=== PATIENT | female | born 1945 | race Caucasian/White ===

== ENCOUNTER → 2022-12-12 12:43 | Outpatient (CLI) | payer MEDICARE, SELFPAY ==
--- NOTE | ~2022-12-12 | MR_ITS ---
EXAMINATION: MR hip LT wo con DATE: 12/12/2022 14:20 INDICATION: Arthritis of left hip. TECHNIQUE: Magnetic resonance imaging (MRI) of the left hip was performed without intravenous contras t. COMPARISON: None FINDINGS: Bones/cartilage: There is 4 degrees levocurvature of lumbar spine. There is moderate lumbar spondylosis. The femoral h ead/neck morphologies are normal. The hips demonstrate tiny osteophytes. Small [id number] images o f left hip demonstrate partial-thickness cartilage loss. Partially visualized is edema-like marrow si gnal intensity from left femoral neck to at least proximal left femoral diaphysis. There is low intra medullary signal in proximal left femoral diaphysis spanning 3.6 cm craniocaudal in a pattern of ruslan droid matrix. There is a mass surrounding proximal left femur measuring 6.9 x 5.9 x 8.4 cm. Labrum: There is a tear of left acetabular labrum. Fluid: There is no hip joint effusion. There is mild bilateral trochanteric bursitis. Soft tissues: There is mild tendinopathy of left hamstring origin. The iliopsoas tendons are normal. There is an ol d partial tear of left gluteus minimus tendon. IMPRESSION: 1. Mass involving proximal left femur suspicious for neoplasm such as chondrosarcoma. 2. Mild osteoarthritis of the hips. Reviewed, dictated and finalized at location A. IMPRESSION: 1. Mass involving proximal left femur suspicious for neoplasm such as chondrosa rcoma. 2. Mild osteoarthritis of the hips.
--- NOTE | ~2022-12-12 | MR_ITS ---
EXAMINATION: MR lumbar spine wo con DATE: 12/12/2022 14:20 INDICATION: Lumbar radiculopathy. Left hip and leg pain. TECHNIQUE: Magnetic resonance imaging (MRI) of the lumbar spine was performed without intravenous con trast. Sequences included sagittal T2-weighted FSE, sagittal T2-weighted FS FSE, sagittal T1-weighted FSE, and axial T2-weighted FSE. COMPARISON: None FINDINGS: There is 4 degrees levocurvature of lumbar spine. There are Schmorl's nodes at multiple lev els. There are low signal lesions in L1 and L5 vertebral bodies. There is mildly decreased disc heigh t at L2-L3 and L3-L4 and moderately decreased disc height at L4-L5. The distal spinal cord signal int ensity is normal. The conus medullaris is at L1-L2. The following disc levels are specifically discus sed: L1-L2: The disc does not extend beyond the endplate margin. There is mild bilateral facet joint osteo arthritis. There is no neural foraminal stenosis. There is no central canal stenosis. L2-L3: The disc is bulging. There is severe bilateral facet joint osteoarthritis. There is mild bilat eral neural foraminal stenosis. There is mild central canal stenosis. L3-L4: The disc is bulging. There is severe bilateral facet joint osteoarthritis. There is mild right and moderate left neural foraminal stenosis. There is mild central canal stenosis. L4-L5: The disc is bulging. There is severe bilateral facet joint osteoarthritis. There is mild bilat eral neural foraminal stenosis. There is mild central canal stenosis. L5-S1: The disc is bulging. There is severe bilateral facet joint osteoarthritis. There is mild bilat eral neural foraminal stenosis. There is no central canal stenosis. IMPRESSION: 1. Bone lesions involving L1 and L5 vertebral bodies suspicious for metastatic disease. 2. Moderate lumbar spondylosis. Reviewed, dictated and finalized at location A.
== END ==
DX: R29.898 Other symptoms and signs involving the musculoskeletal system (principal); M62.81 Muscle weakness (generalized); M47.26 Other spondylosis with radiculopathy, lumbar region; M16.0 Bilateral primary osteoarthritis of hip
CPT/HCPCS: 72148; 73721

== ENCOUNTER 2023-03-30 00:15 | Inpatient (IN) | payer MEDICARE, SELFPAY ==
[2023-03-30] VITALS (14 sets, daily range): BP systolic 131–166; BP diastolic 39–83; PULSE 62–110; RESP 15–24; TEMP 36.4–36.6; O2SAT 93–96
--- NOTE | ~2023-03-30 | XR_ITS ---
EXAMINATION: [id number] DATE: 03/31/2023 12:40 INDICATION: Left pleural effusion status post thoracentesis. TECHNIQUE: A single frontal view of the chest was obtained. COMPARISON: Chest 2 views 03/30/2023, chest CT 03/30/2023 FINDINGS: There are small pleural effusions. There are nodules and masses in the lungs bilaterally. T here is mild atelectasis bilaterally. No pneumothorax. The heart size is normal. Median sternotomy wi res and mediastinal surgical clips are seen, likely from prior coronary artery bypass grafting. Breas t implants are noted. IMPRESSION: 1. Small pleural effusions with improvement on the left status post thoracentesis. 2. Nodules and masses in the lungs, consistent with metastatic disease. Reviewed, dictated and finalized at location A. AR REPAIRER IMPRESSION: 1. Small pleural effusions with improvement on the left status post thoracentes is. 2. Nodules and masses in the lungs, consistent with metastatic disease.
--- NOTE | ~2023-03-30 | US_ITS ---
EXAMINATION: US thoracentesis DATE: 03/31/2023 12:48 INDICATION: pleural effusion TECHNIQUE: The procedure and its risks, benefits, and alternatives were discussed with the patient. P otential risks discussed included bleeding, infection, and pneumothorax. The patient understood the r isks and agreed to proceed. The skin was prepped and draped in sterile fashion. 1% lidocaine was used for local anesthesia. Under ultrasound guidance, a 5 Fr catheter with trochar was advanced into the left pleural effusion. Fluid was aspirated. The catheter was removed, and a dressing was applied. The re were no immediate complications. FINDINGS: Ultrasound images demonstrate a left pleural effusion and the catheter within the fluid. IMPRESSION: 1. Successful ultrasound-guided thoracentesis yielding 1000 mL of brown-red fluid. Reviewed, dictated and finalized at location A. ANALYST IMPRESSION: 1. Successful ultrasound-guided thoracentesis yielding 1000 mL of brown-red fl uid.
--- NOTE | ~2023-03-30 | XR_ITS ---
Clinical Indication: Shortness of breath PA and lateral views of the chest: Comparison: None Findings: Moderate left pleural effusion and minimal right pleural effusion are present. There is bib asilar pulmonary edema/atelectatic change. Cardiomediastinal silhouette is within normal limits, stat us post probable CABG. Bones and soft tissues are unremarkable. Impression: Moderate left pleural effusion and minimal right pleural effusion. Bibasilar pulmonary edema/atelectasis. Reviewed, dictated and finalized at location M. MECHANIC Impression: Moderate left pleural effusion and minimal right pleural effusion. Bibasilar pulmonary edema/atelectasis.
--- NOTE | ~2023-03-30 | CT_ITS ---
CT head without contrast Indication: Metastatic disease Technique: Serial scans were obtained through the brain without the administration of contrast. Dose reduction technique was used on this scan by utilizing automated exposure control and iterative recon struction technique. The dose-length product (DLP) was 605.33 mGy-cm. Findings: There is no evidence of intracranial hemorrhage, mass lesion, or acute infarct. The ventri cles and subarachnoid spaces are dilated, consistent with mild atrophy. Low attenuation regions are seen within the periventricular white matter bilaterally, likely representing changes from chronic mi crovascular ischemic disease. There is no evidence of edema, mass effect or midline shift. The visu alized paranasal sinuses and mastoid air cells are clear. Impression: No intracranial hemorrhage, mass, or acute infarct. Pre and postcontrast MR would be more sensitive f or small metastatic lesions. Atrophy and chronic white matter changes, as above. Reviewed, dictated and finalized at [facility]. M MECHANISM ADJUSTER Impression: No intracranial hemorrhage, mass, or acute infarct. Pre and postcontrast MR wou ld be more sensitive for small metastatic lesions. Atrophy and chronic white matter changes, as above.
--- NOTE | ~2023-03-30 | CT_ITS ---
Clinical Indication: Dyspnea CT Scan of the Chest with Contrast: Technique: Contiguous sections were acquired throughout the chest after intravenous administration of 100 cc of Omnipaque 350. Dose reduction technique was used on this scan by utilizing automated expos ure control and iterative reconstruction technique. The dose-length product (DLP) was 246.95 mGy-cm. Findings: There is no evidence of any significant mediastinal, hilar or axillary lymphadenopathy. There is no f illing defect in the pulmonary arterial tree to suggest pulmonary embolus. There is no evidence of ao rtic dissection or aneurysm. There is a metastatic implant along the anterior wall of the pulmonary o utflow tract extending into the lumen partially measuring 2.5 cm in diameter (axial image 106 for exa mple). The intraluminal extension portion measures approximately 1 cm in diameter. No pericardial eff usion. There is a probable metastatic inferior pericardial lymph node on the right side measuring 2 c m in diameter (axial image 172). There are moderate bilateral pleural effusions, left larger than right. There is fluid in the right f issures. There is extensive partial left lower lobe atelectasis, and mild partial right lower lobe at electasis. There are multiple pulmonary nodules bilaterally, largest in the right lung probably measu ring up to approximately 2.8 cm, consistent with pulmonary metastatic disease. There are subtle areas of lobulated hyperdensity along the pleural lining of the lungs, especially at the lung bases, kyle tible with pleural-based metastatic disease. Images through the upper abdomen reveal no abnormalities. Impression: No evidence of pulmonary embolus, aortic dissection, or aortic aneurysm. Extensive pulmonary parenchymal and pleural-based metastatic disease, as detailed above. Cardiac/pericardial metastatic lesion anteriorly extending into the pulmonary artery outflow tract, a s detailed above. Moderate bilateral pleural effusions, left larger than right, with partial bilateral lower lobe atele ctasis. Metastatic inferior pericardial lymph node, as detailed above. Reviewed, dictated and finalized at location M. HER ETCHER Impression: No evidence of pulmonary embolus, aortic dissection, or aortic aneurysm. Extensive pulmonary parenchymal and pleural-based metastatic disease, as detail ed above. Cardiac/pericardial metastatic lesion anteriorly extending into the pulmonary a rtery outflow tract, as detailed above. Moderate bilateral pleural effusions, left larger than right, with partial bila teral lower lobe atelectasis. Metastatic inferior pericardial lymph node, as detailed above.
--- NOTE | 2023-03-30 00:25 | ECG_ITS ---
Measurements Intervals [place] Rate: 94 P: 0 ND: 132 QRS: 25 QRSD: 81 T: 27 QT: 367 QTc: 461 Interpretive Statements SINUS RHYTHM BORDERLINE ST-T WAVE ABNORMALITY- DIFFUSE LEADS BASELINE WANDER- I, II, AVF, V4-V6 BORDERLINE ECG NO PREVIOUS ECG AVAILABLE FOR COMPARISON Electronically Signed On 03-30-2023 6:59:51 DISTILLING DEPARTMENT SUPERVISOR by Ye Dixon D.O.
--- NOTE | 2023-03-30 00:46 | PC.NURSE ---
While patient was getting her labs drawn and EKG done in triage patient was making comments that didn't make sense. Patient asked tech if she was sisters with her mom .
[2023-03-30 01:03] LABS: Alanine Aminotransferase 20 U/L (6-35); Albumin Level 2.9 g/dL (3.5-5.1); Alkaline Phosphatase 88 U/L (38-126); Anion Gap 7 mmol/L (8-16); Aspartate Amino Transferase 28 U/L (14-36); Bilirubin,Total 0.5 mg/dL (0.2-1.3); Blood Urea Nitrogen 11 mg/dL (7-17); Calcium 7.9 mg/dL (8.4-10.2); Carbon Dioxide 28 mmol/L (22-30); Chloride 87 mmol/L (98-107); Estimated CRCL calculation 78 ml/min; Estimated Glomerular Filt Rate > 60; Glucose 137 mg/dL (65-110); Potassium 3.6 mmol/L (3.4-5.0); Sodium 122 mmol/L (137-145)
[2023-03-30 01:28] LABS: Influenza A QL RT-PCR Negative (Negative); Influenza B QL RT-PCR Negative (Negative); RSV RNA, RT-PCR Negative (Negative); SARS-CoV-2 RNA PCR Negative (Negative)
[2023-03-30 01:33] LABS: Basophils Percent Auto 0.3 % (0.2-1.2); Eosinophils Percent Auto 0.1 % (0-4.4); Hematocrit 26.9 % (37.0-47.0); Hemoglobin 8.2 g/dL (12.0-15.0); Immature Granulocyte Absolute 0.04 K/mm3 (0.00-0.031); Immature Granulocyte Percent A 0.5 % (0-0.5); Lymphocytes Absolute Auto 0.67 K/mm3 (0.9-3.2); Lymphocytes Percent Auto 9.1 % (18.3-44.2); Mean Corpuscular HGB Conc 30.5 g/dl (32-36); Mean Corpuscular Hemoglobin 25.7 pg (26-34); Mean Corpuscular Volume 84.3 fl (80-100); Mean Platelet Volume 8.9 fl (7.4-10.4); Monocytes Absolute Auto 0.7 K/mm3 (0.1-0.6); Monocytes Percent Auto 9.7 % (2.6-8.5); Neutrophils Absolute Auto 5.9 K/mm3 (1.3-6.7); Neutrophils Percent Auto 80.3 % (45.5-73.1); Platelet Count Result 398 k/mm3 (150-375); Red Blood Count 3.19 M/mm3 (4.2-5.4); Red Cell Distribution Width 14.6 % (11.5-14.5); White Blood Count 7.3 K/mm3 (4.5-10.0)
[2023-03-30 02:54] LABS: Partial Thromboplastin Time 32.7 SECONDS (22.3-36.8)
[2023-03-30 02:56] LABS: NT Pro B Type Natriuretic Pept 1680 pg/mL (19.9-100); Procalcitonin 0.1 ng/mL; Troponin I 0.052 ng/mL (0.000-0.034)
[2023-03-30] MEDS: ASPIRIN 81 MG CHEWABLE TABLET 324 MG PO (03:27)
--- NOTE | 2023-03-30 04:38 | PC.NURSE ---
AFTER PT UTILIZED THE BEDSIDE COMMODE, PT REQUESTED A NEW BANDAGE BE PLACED ON WOUND. THIS RN REPLACED THE WOUND COVERING WITH NON- ADHERENT TEFLA AND PAPER TAPE ALONG THE EDGES REQUESTED BY PT VISITOR WHO NORMALLY CHANGES PT WOUND DRESSING.
--- NOTE | 2023-03-30 04:44 | ED.GENADULT ---
HPI - General Adult General Chief complaint: Shortness of Breath/Dyspnea Stated complaint: I'm having trouble breathing Time Seen by Provider: 03/30/23 01:27 History of Present Illness HPI narrative: Patient is a 78-year-old female who presents emerged from with chief complaint of shortness of breath. Patient reports over last several days she has been having worsening shortness of breath reports that this she is knows that she is not able to get a good deep breath and reports that it is worse with laying flat. 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 Nursing and ancillary documentation was reviewed. Exam Narrative: GENERAL: Well-appearing, well-nourished, and in no acute distress. HEAD: Normocephalic, atraumatic. EYES: PERRLA and EOMI. ENT: Nares clear, no rhinorrhea or epistaxis. Mucous membranes moist. NECK: Supple. CHEST: Clear to auscultation. No respiratory distress. HEART: Regular rate and rhythm. No murmur heard. Normal peripheral pulses. ABDOMEN: Soft, nontender, nondistended, normal active bowel sounds. EXTREMITIES: Normal range of motion. No edema. SKIN: Warm, dry, no rash. NEURO: No focal deficits. Alert and oriented x3. PSYCH: Normal mood and affect. Course Vital Signs Vital signs: Vital Signs Temperature 36.6 C 03/30/23 00:18 Pulse Rate 104 H 03/30/23 00:18 Respiratory Rate 24 H 03/30/23 00:18 Blood Pressure 131/63 03/30/23 00:18 Pulse Oximetry 96 03/30/23 00:18 Oxygen Delivery Room Air 03/30/23 00:18 Temperature 36.6 C 03/30/23 00:18 Pulse Rate 92 03/30/23 02:46 Respiratory Rate 15 03/30/23 02:46 Blood Pressure 131/63 03/30/23 00:18 Pulse Oximetry 94 03/30/23 01:25 Oxygen Delivery Room Air 03/30/23 01:25 Medical Decision Making MDM Narrative Medical decision making narrative: Differential diagnosis includes pulmonary embolism, multiple metastatic lesions, pneumonia CT scan of the chest showed evidence of multiple metastatic lesions pleural effusion, compressive atelectasis Case was discussed with Dr. Cedeno of the apology service at [place] the patient was accepted to [place] Vital Signs Vital Signs: Vital Signs Temperature 36.6 C 03/30/23 00:18 Pulse Rate 104 H 03/30/23 00:18 Respiratory Rate 24 H 03/30/23 00:18 Blood Pressure 131/63 03/30/23 00:18 Pulse Oximetry 96 03/30/23 00:18 Oxygen Delivery Room Air 03/30/23 00:18 Temperature 36.6 C 03/30/23 00:18 Pulse Rate 92 03/30/23 02:46 Respiratory Rate 15 03/30/23 02:46 Blood Pressure 131/63 03/30/23 00:18 Pulse Oximetry 94 03/30/23 01:25 Oxygen Delivery Room Air 03/30/23 01:25 Lab Data 03/30/23 01:23 03/30/23 00:44 Labs: Lab Results 03/30/23 03/30/23 03/30/23 Range/Units 00:44 01:23 05:30 WBC 7.3 (4.5-10.0) K/mm3 RBC 3.19 L (4.2-5.4) M/mm3 Hgb 8.2 L (12.0-15.0) g/dL Hct 26.9 L (37.0-47.0) % MCV 84.3 (80-100) fl MCH 25.7 L (26-34) pg MCHC 30.5 L (32-36) g/dl RDW 14.6 H (11.5-14.5) % Plt Count 398 H (150-375) k/mm3 MPV 8.9 (7.4-10.4) fl Immature Gran % (Auto) 0.5 (0-0.5) % Neut % (Auto) 80.3 H (45.5-73.1) % Lymph % (Auto) 9.1 L (18.3-44.2) % [place] % (Auto) 9.7 H (2.6-8.5) % Eos % (Auto) 0.1 (0-4.4) % Baso % (Auto) 0.3 (0.2-1.2) % Lymph # (Auto) 0.67 L (0.9-3.2) K/mm3 [place] # (Auto) 0.7 H (0.1-0.6) K/mm3 Eos # (Auto) 0.0 (0-0.3) K/mm3 Baso # (Auto) 0.0 (0.0-0.1) K/mm3 Abs Immat Gran (auto)
--- NOTE | 2023-03-30 05:56 | PC.NURSE ---
THIS RN SPOKE WITH SHIRA JOSHI AT [facility] TOO GIVE A TRIAGE ASSESSMENT ON PT. SHIRA JOSHI STATED THEY WERE FULL AT THE MOMENT BUT THE PT WAS ACCEPTED AND PENDING A BED ASSIGNMENT.
[2023-03-30 06:00] LABS: Troponin I 0.043 ng/mL (0.000-0.034)
[2023-03-30 06:04] LABS: Add Urine Microscopic? YES; Appearance Urine Clear (Clear); Bacteria Urine Rare /hpf; Bilirubin Urine Negative (Negative); Blood Urine Negative (Negative); Color Urine Yellow (Yellow); Glucose Urine UA Negative (Negative); Ketones Urine 3+ mg/dL (Negative); Leukocyte Esterase Ur Negative LEU/UL (Negative); Need Manual Microscopic Reviewed; Nitrate Urine Negative (Negative); Non Pathogenic Casts 0-2; Protein Urine 1+ mg/dL (Negative); Squamous Epithelial Cell Urine Few /hpf (Few); Urobilinogen Urine 0.2 mg/dL (<2.0); WBC Urine 0-5 /hpf
[2023-03-30] MEDS: lisinopriL 20 MG TABLET 40 MG PO (09:00)
[2023-03-30] MEDS: ISOSORBIDE MONONITRATE 30 MG TAB.ER.24H PO (09:01)
[2023-03-30] MEDS: LEVOTHYROXINE SODIUM 100 MCG TABLET PO (09:01)
[2023-03-30] MEDS: oxyCODONE HCL (*CRX) 5 MG TAB IR PO ×2 (09:38→17:03)
[2023-03-30] MEDS: PANTOPRAZOLE SOD SESQUIHYDRATE 20 MG TAB PO (12:32)
--- NOTE | 2023-03-30 13:45 | PC.NURSE ---
[facility] stated that pt is still on waitlist for an oncology bed, and will call when there is a bed available
--- NOTE | 2023-03-30 16:33 | PC.NURSE ---
Pt visitors came to nurse station in regards to pt. This RN entered pt room and checked on pt. Pt visitors inquired about pain medications for pt and stated if you won't give her her oxycodone or gabapentin we will bring it to her from home . This RN educated pt visitors and informed them that they could not bring in outside pain medications and administer them. This RN then informed pt and pt visitors that she would inform the EDP on staff. EDP aware of pt complaints of pain and requests for her pain medications.
[2023-03-30] MEDS: GABAPENTIN 400 MG CAPSULE PO (17:03)
--- NOTE | 2023-03-30 19:16 | PC.NURSE ---
Report given to Gladys SILVA, all questions answered
--- NOTE | 2023-03-30 19:52 | PC.NURSE ---
Spoke with [facility] transfer center for status check on bed placement. No beds currently available and pt has several others ahead of her on waitlist.
--- NOTE | 2023-03-30 23:29 | ADMGEN ---
This patient, Janet Benitez, was admitted to Medical Room 242-. Patient/family oriented to hospital policies and general routines including ID bracelet, bed and alarms, visiting hours, pain management, procedures, bathroom and other care routines, personal items, smoking policy, room service/diet, and visiting hours. Information on how to activate the Rapid Response Team has been discussed. Patient/Family are encouraged to report perceived risks to care and to ask questions if they do not understand what they are told or what they should do.
[2023-03-31] VITALS (10 sets, daily range): BP systolic 100–148; BP diastolic 47–62; PULSE 89–100; RESP 14–20; TEMP 36.5–36.8; O2SAT 94–99
[2023-03-31] MEDS: ONDANSETRON INJ 4 MG/2 ML VIAL IV PUSH ×2 (00:12→13:14)
[2023-03-31] MEDS: MORPHINE SULFATE (*CRX) 2 MG/ML INJ IV PUSH ×3 (00:12→13:13)
[2023-03-31] MEDS: LEVOTHYROXINE SODIUM 100 MCG TABLET PO (08:40)
[2023-03-31] MEDS: dilTIAZem HCL CD 120 MG CAP.24HR PO (08:40)
[2023-03-31] MEDS: ISOSORBIDE MONONITRATE 30 MG TAB.ER.24H PO (08:40)
[2023-03-31] MEDS: GABAPENTIN 400 MG CAPSULE PO ×3 (08:40→21:12)
[2023-03-31] MEDS: PANTOPRAZOLE SOD SESQUIHYDRATE 20 MG TAB PO (08:40)
[2023-03-31] MEDS: FUROSEMIDE 40 MG TABLET PO (08:41)
[2023-03-31] MEDS: lisinopriL 20 MG TABLET 40 MG BY MOUTH (08:41)
[2023-03-31] MEDS: oxyCODONE HCL (*CRX) 5 MG TAB IR PO ×3 (08:46→21:12)
--- NOTE | 2023-03-31 12:15 | PM.IMHP ---
H&P: HPI History of Present Illness Date/Time: 03/31/23 1215 Chief Complaint: Shortness of breath Narrative: Patient is a 78 year old female with a past medical history of HTN, Metastatic cancer, Hypothyroidism who presented to the ED with complaints of increase shortness of breath, that started on Thursday night. She stated that she was having increased wheezes, inability to lay flat, and just overall increased work of breathing. She also stated that she has a cough, however, has not been productive. She has been having no chest pain, nausea, vomiting, diarrhea, constipation, weakness or fatigue. She did state that she has been having some light headedness and dizziness, however, seems to be chronic at this time. Patient does have a wound on her left leg hip bone area. She does need wound care 3 times a day. She currently is feeling a lot better and she is transferring from the chair to the bed. Currently she denies any current pain including chest pain, shortness a breath, nausea, vomiting, diarrhea constipation. I did speak to her sister along with her partner and her best friend who were all the room and she did give me permission to talk to them. Patient has been placed back on the list at [facility]. CTA was performed and showed possible new cancer. Spoke with Dr. Vásquez' nurse. Labs appear to be stable at this time. Sodium is 122 however most likely related to fluid overload. Troponins were mildly elevated BNP was mildly elevated at 16 80. Will repeat labs at this time. Patient has been accepted to [facility] with Dr. Vásquez being the accepting Physicians. Patient is being admitted to the hospitalist service under observation, and will most likely require less than 2 midnights for treatment, recovery, care. Review of Systems Review of Systems: 14 systems reviewed and are negative unless otherwise listed in the HPI. [facility] Past Medical History Medical History (Updated 03/31/23 @ 07:12 by LUIS M Ku) Acute dyspnea CAD (coronary artery disease) Cancer related pain Debilitated Gait abnormality Hyperlipidemia Hypertension Hypothyroidism Lesion of left femur Mass of chest wall, left Paroxysmal A-fib Severe malnutrition Steroid-induced hyperglycemia Surgical History Surgical History (Updated 03/31/23 @ 07:01 by LUIS M Ku) S/P CABG x 3 Family History Family History (Updated 03/30/23 @ 23:55 by Nneka Delgadillo RN) Father Acute myocardial infarction Colon cancer Congestive heart failure Sibling Cerebrovascular accident Sibling Hypertension Graves' disease Daughter Hypertension Sibling Mesothelioma Mother Lung cancer Graves' disease Social History Social History Smoking status: Never smoker Alcohol intake: never Substance use: never Do You Feel Safe in your Home?: Yes Lack of Transportation: No Lack of Food: Never True Current Housing: I Have Housing Concerned About Future Housing: No Difficulty Paying Gas/Electric Bills: No Difficulty Paying for Meds: No Currently Unemployed: No Education: Master's Degree or Higher Difficulty w/ Childcare or Family Care: No Spiritual care concerns: No Meds Home Medications and Allergies Home Medications Medication Instructions Recorded Confirmed Type apixaban 2.5 mg tablet (Eliquis) 2.5 mg PO Q12HR 30 days #60 tabs 02/14/23 03/30/23 Rx atorvastatin 20 mg tablet 20 mg PO HS 30 days #30 tabs 02/14/23 03/30/23 Rx diltiazem HCl 120 mg capsule,24 120 mg PO QAM 30 days #30 caps 02/14/23 03/30/23 Rx hr,extended release furosemide 40 mg tablet 40 mg PO DAILY 5 days #5 tabs 02/14/23 03/30/23 Rx gabapentin 400 mg capsule 400 mg PO Q8HR 30 days #90 caps 02/14/23 03/30/23 Rx isosorbide mononitrate 30 mg 30 mg PO QAM 30 days #30 tabs 02/14/23 03/30/23 Rx tablet,extended release 24 hr levothyroxine 100 mcg tablet 100 mcg PO DAILY@0630 30 days
[2023-03-31] MEDS: ATORVASTATIN 20 MG TABLET PO (21:08)
[2023-04-01] VITALS (10 sets, daily range): BP systolic 96–110; BP diastolic 37–58; PULSE 88–107; RESP 16–22; TEMP 36.6–36.7; O2SAT 91–95; BMI 24.1
[2023-04-01] MEDS: LEVOTHYROXINE SODIUM 100 MCG TABLET PO (05:39)
[2023-04-01] MEDS: oxyCODONE HCL (*CRX) 5 MG TAB IR PO (05:39)
[2023-04-01] MEDS: GABAPENTIN 400 MG CAPSULE PO (05:40)
--- NOTE | 2023-04-01 05:47 | PC.NURSE ---
UPON GIVING PT MORNING MED AND PAIN MEDICATION PT WENT IN AND OUT OF ORIENTATION. AFTER TAKING THE PILLS PT ACCUSED ME OF NOT GIVING HER PAIN MEDS. I THEN NAMED ALL THE MEDS I GAVE HER AGAIN WITH DESCRIPTION OF SIZE AND COLOR. PT THEN SAID SHE REMEMBERED.
[2023-04-01 05:57] LABS: Basophils Percent Auto 0.2 % (0.2-1.2); Eosinophils Percent Auto 0.3 % (0-4.4); Hematocrit 25.2 % (37.0-47.0); Hemoglobin 7.7 g/dL (12.0-15.0); Immature Granulocyte Absolute 0.06 K/mm3 (0.00-0.031); Immature Granulocyte Percent A 0.6 % (0-0.5); Lymphocytes Absolute Auto 0.75 K/mm3 (0.9-3.2); Lymphocytes Percent Auto 7.8 % (18.3-44.2); Mean Corpuscular HGB Conc 30.6 g/dl (32-36); Mean Corpuscular Hemoglobin 26.2 pg (26-34); Mean Corpuscular Volume 85.7 fl (80-100); Mean Platelet Volume 8.9 fl (7.4-10.4); Monocytes Absolute Auto 0.7 K/mm3 (0.1-0.6); Monocytes Percent Auto 6.7 % (2.6-8.5); Neutrophils Absolute Auto 8.1 K/mm3 (1.3-6.7); Neutrophils Percent Auto 84.4 % (45.5-73.1); Platelet Count Result 399 k/mm3 (150-375); Red Blood Count 2.94 M/mm3 (4.2-5.4); Red Cell Distribution Width 15.2 % (11.5-14.5); White Blood Count 9.6 K/mm3 (4.5-10.0)
[2023-04-01 06:04] LABS: Alanine Aminotransferase 17 U/L (6-35); Albumin Level 2.5 g/dL (3.5-5.1); Alkaline Phosphatase 78 U/L (38-126); Anion Gap 5 mmol/L (8-16); Aspartate Amino Transferase 26 U/L (14-36); Bilirubin,Total 0.4 mg/dL (0.2-1.3); Blood Urea Nitrogen 19 mg/dL (7-17); Calcium 7.7 mg/dL (8.4-10.2); Carbon Dioxide 29 mmol/L (22-30); Chloride 90 mmol/L (98-107); Estimated CRCL calculation 42 ml/min; Estimated Glomerular Filt Rate > 60; Glucose 185 mg/dL (65-110); Magnesium 2.1 mg/dL (1.6-2.3); Sodium 124 mmol/L (137-145)
[2023-04-01] MEDS: ISOSORBIDE MONONITRATE 30 MG TAB.ER.24H PO (08:37)
[2023-04-01] MEDS: FUROSEMIDE 40 MG TABLET PO (08:37)
[2023-04-01] MEDS: PANTOPRAZOLE SOD SESQUIHYDRATE 20 MG TAB PO (08:37)
[2023-04-01] MEDS: MORPHINE SULFATE (*CRX) 60 MG TABCR PO (08:37)
--- NOTE | 2023-04-01 10:37 | PC.NURSE ---
Am bp meds held bp 100/47, Dr Edmond notified
--- NOTE | 2023-04-01 10:38 | PM.IMPN ---
Progress Note: A&P Assessment and Plan (1) Hyponatremia: Code(s): E87.1 - Hypo-osmolality and hyponatremia Status: Acute Assessment and Plan: Her sodium 124. Limited fluid intake. We will replace sodium tablet. 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 Possible metastasis to and/or been seen by oncologist at [place] plan for transfer. Continue oxycodone and gabapentin for pain control (3) Hypothyroidism: Qualifiers: Hypothyroidism type: acquired Qualified Code(s): E03.9 - Hypothyroidism, unspecified Code(s): E03.9 - Hypothyroidism, unspecified Status: Acute Assessment and Plan: Continue levothyroxine (4) Paroxysmal A-fib: Code(s): I48.0 - Paroxysmal atrial fibrillation Status: Acute Assessment and Plan: New onset atrial fibrillation. Continue Eliquis. Monitor H&H. Continue isosorbide mononitrate, lisinopril, furosemide (5) Anemia: Code(s): D64.9 - Anemia, unspecified Status: Acute Assessment and Plan: ANEMIA Stool for occult blood negative Anemia of chronic disease and malnutrition Iron supplement if needed H&H 7.7/25, MCV 85.7 Patient may need dietitian consult for severe malnutrition Plan Spoke to patient at length prognosis poor. Continue Eliquis and monitor H& H. Transfer to [place] when bed available Time Spent With Patient Time: 35 minutes Subjective Date/time seen: 04/01/23 10:38 Interval history: Patient admitted with anemia pleural effusion history of metastatic lung disease, hypotension new onset atrial fibrillation on hypernatremia Review of Systems Review of Systems: No fever chills no chest pain or shortness for breath appears comfortable Exam Narrative: GENERAL: non-toxic, in no acute distress. HEAD: Normocephalic, atraumatic. NECK: Supple. No adenopathy, no masses. RESPIRATORY: Airway patent, respirations nonlabored. Clear to auscultation bilaterally, no rales, rhonchi, wheezing. CARDIOVASCULAR: Regular rate and rhythm without murmurs, rubs, or gallops. Peripheral pulses 2+ and equal bilaterally. ABDOMINAL: Soft, nontender, nondistended, no hepatosplenomegaly. Normoactive BS. MUSCULOSKELETAL: no Epigastric and no hypochondrial tenderness SKIN: Warm, dry, normal color. No rashes. NEURO: A&O X3. Moves all extremities PSYCHIATRIC: Appropriate mood and affect. Normal interaction. Objective Data Vital Signs Vital Signs: Vital Signs - 24 hr 03/31/23 12:15 03/31/23 12:33 03/31/23 14:00 Temperature 36.6 C Pulse Rate 94 93 89 Respiratory Rate 19 Blood Pressure 115/60 101/50 L 118/58 L Pulse Oximetry 97 99 95 Oxygen Delivery Oxygen Flow Rate 03/31/23 15:30 03/31/23 20:00 03/31/23 21:26 Temperature 36.8 C Pulse Rate 93 94 Respiratory Rate 18 Blood Pressure 100/50 L 101/47 L Pulse Oximetry 95 95 94 Oxygen Delivery Nasal Cannula Oxygen Flow Rate 2 04/01/23 05:37 04/01/23 06:00 04/01/23 08:35 Temperature 36.7 C 36.6 C Pulse Rate 88 96 Respiratory Rate 16 19 Blood Pressure 108/44 L 98/41 L 101/44 L Pulse Oximetry 95 94 Oxygen Delivery Oxygen Flow Rate 04/01/23 08:00 Temperature Pulse Rate Respiratory Rate Blood Pressure Pulse Oximetry 94 Oxygen Delivery Nasal Cannula Oxygen Flow Rate 2 Intake/Output Intake/Output: Intake & Output 03/29/23 03/30/23 03/31/23 04/01/23 23:59 23:59 23:59 23:59 Intake Total 690 240 Output Total 1000 125 Balance -310 115 Meds/Results Medications: Active Medications Generic Name Dose Route Start Last Admin Trade Name Freq PRN Reason Stop Dose Admin Acetam
[2023-04-01] MEDS: SODIUM CHLORIDE 5% OP SOLN 15 ML BTL 1 DROP EACH EYE ×2 (15:16→21:00)
[2023-04-01] MEDS: DEXTROSE 5%/0.9% SOD CHL 1,000 ML 75 ML IV CONT (15:18)
--- NOTE | 2023-04-01 15:42 | PC.NURSE ---
1500 Dr Nuno notified of patient more lethargic this afternoon. Bp 96/37, patient wakes up to voice then goes back to sleep. New orders received.
--- NOTE | 2023-04-01 17:00 | PC.NURSE ---
DR BOWER UPDATED ON BP NOW 110/40 AND SAT 96% ON 2LITERS. PATIENT STILL LETHARGIC AND LUNG SOUNDS ARE STARTING TO SOUND CONGESTED. PATIENT WILL COUGH AND CLEAR AIRWAY WHEN ASKED.
[2023-04-02] VITALS (7 sets, daily range): BP systolic 113–120; BP diastolic 28–48; PULSE 87–94; RESP 12–18; TEMP 36.3–36.8; O2SAT 91–98
[2023-04-02] MEDS: DEXTROSE 5%/0.9% SOD CHL 1,000 ML 75 ML IV CONT ×2 (04:21→16:44)
--- NOTE | 2023-04-02 07:56 | PM.IMPN ---
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 Blood pressure is up to 115/60 after a bolus of saline yesterday Sodium up to 126 and creatinine 1.2 Patient willing for transfer the [facility]. Continue oxycodone and gabapentin for pain control. Atrial fibrillation continue Eliquis, isosorbide dinitrate, lisinopril, Lasix Anemia of chronic disease and malnutrition. Iron supplements if needed. Spoke to patient's family at the moment encouraged oral intake. Prognosis is poor in general due to metastatic disease Hold BP meds. Patient is DNR. No anticoagulation due to possible GI bleed and low hemoglobin GI prophylaxis. All records reviewed Discussed plan of care patient's family and with with the nursing staff and with the patient in detail. Answered all questions and concerns from the patient. All labs have been reviewed. Code status updated dictation may have been done utilizing a voice recognition system. Attempts have been made to correct errors. However, there may be uncorrected grammatical, spelling, and recognition errors present. Time Spent With Patient Time: 35 minutes Subjective Date/time seen: 04/02/23 07:56 Interval history: Patient admitted with anemia pleural effusion history of metastatic lung disease, hypotension new onset atrial fibrillation on hypornatremia much more alert and awake Review of Systems Review of Systems: All systems reviewed & are unremarkable except as noted in HPI and below Exam Narrative: GENERAL: non-toxic, in no acute distress. HEAD: Normocephalic, atraumatic. NECK: Supple. No adenopathy, no masses. RESPIRATORY: Airway patent, respirations nonlabored. CARDIOVASCULAR: Regular rate and rhythm without murmurs, ABDOMINAL: Soft, nontender, nondistended, no hepatosplenomegaly. Normoactive BS. SKIN: Warm, dry, normal color. No rashes. NEURO: A&O X3. Moves all extremities PSYCHIATRIC: Appropriate mood and affect. Normal interaction. Objective Data Vital Signs Vital Signs: Vital Signs - 24 hr 04/01/23 08:35 04/01/23 08:00 04/01/23 14:54 Temperature Pulse Rate 96 Respiratory Rate 22 H Blood Pressure 101/44 L 96/37 L Pulse Oximetry 94 95 Oxygen Delivery Nasal Cannula Oxygen Flow Rate 2 04/01/23 16:41 04/01/23 09:17 04/01/23 20:58 Temperature Pulse Rate 107 H Respiratory Rate 20 Blood Pressure 110/40 L 110/58 L Pulse Oximetry 94 91 Oxygen Delivery Nasal Cannula Oxygen Flow Rate 2 04/01/23 21:02 04/01/23 23:47 04/02/23 04:21 Temperature 36.7 C 36.3 C L Pulse Rate 107 H 101 H 88 Respiratory Rate 20 19 18 Blood Pressure 107/43 L 114/28 L Pulse Oximetry 91 93 96 Oxygen Delivery Nasal Cannula Oxygen Flow Rate 3 04/02/23 06:00 Temperature 36.4 C Pulse Rate 94 Respiratory Rate 16 Blood Pressure 115/48 L Pulse Oximetry 94 Oxygen Delivery Oxygen Flow Rate Intake/Output Intake/Output: Intake & Output 03/30/23 03/31/23 04/01/23 04/02/23 23:59 23:59
[2023-04-02 08:44] LABS: Hematocrit 23.7 % (37.0-47.0); Mean Corpuscular HGB Conc 29.5 g/dl (32-36); Mean Corpuscular Volume 88.1 fl (80-100); Mean Platelet Volume 8.7 fl (7.4-10.4); Platelet Count Result 332 k/mm3 (150-375); Red Blood Count 2.69 M/mm3 (4.2-5.4); Red Cell Distribution Width 15.4 % (11.5-14.5); White Blood Count 9.6 K/mm3 (4.5-10.0)
[2023-04-02 09:03] LABS: Alanine Aminotransferase 15 U/L (6-35); Albumin Level 2.5 g/dL (3.5-5.1); Alkaline Phosphatase 79 U/L (38-126); Anion Gap 6 mmol/L (8-16); Aspartate Amino Transferase 23 U/L (14-36); Bilirubin,Total 0.3 mg/dL (0.2-1.3); Blood Urea Nitrogen 30 mg/dL (7-17); Calcium 7.7 mg/dL (8.4-10.2); Carbon Dioxide 29 mmol/L (22-30); Chloride 91 mmol/L (98-107); Estimated CRCL calculation 29 ml/min; Estimated Glomerular Filt Rate 43; Glucose 152 mg/dL (65-110); Potassium 3.9 mmol/L (3.4-5.0); Sodium 126 mmol/L (137-145)
[2023-04-02] MEDS: PANTOPRAZOLE SOD SESQUIHYDRATE 20 MG TAB PO (09:36)
[2023-04-02] MEDS: SODIUM CHLORIDE 5% OP SOLN 15 ML BTL 1 DROP EACH EYE ×2 (09:37→21:13)
[2023-04-02] MEDS: GABAPENTIN 400 MG CAPSULE PO ×2 (13:28→21:13)
[2023-04-02 14:10] LABS: Hemoglobin 7.6 g/dL (12.0-15.0)
[2023-04-02] MEDS: oxyCODONE HCL (*CRX) 5 MG TAB IR PO (16:45)
[2023-04-02] MEDS: ATORVASTATIN 20 MG TABLET PO (21:13)
[2023-04-03] MEDS: oxyCODONE HCL (*CRX) 5 MG TAB IR PO ×3 (04:51→19:58)
[2023-04-03] MEDS: DEXTROSE 5%/0.9% SOD CHL 1,000 ML 75 ML IV CONT (05:58)
[2023-04-03] MEDS: GABAPENTIN 400 MG CAPSULE PO ×3 (05:58→19:59)
[2023-04-03] MEDS: LEVOTHYROXINE SODIUM 100 MCG TABLET PO (05:58)
[2023-04-03 06:51] VITALS: BP 135/50; PULSE 84; RESP 14; TEMP 36.4; O2SAT 96
[2023-04-03 08:24] LABS: Hematocrit 25.1 % (37.0-47.0); Hemoglobin 7.3 g/dL (12.0-15.0); Mean Corpuscular HGB Conc 29.1 g/dl (32-36); Mean Corpuscular Hemoglobin 25.6 pg (26-34); Mean Corpuscular Volume 88.1 fl (80-100); Mean Platelet Volume 8.4 fl (7.4-10.4); Platelet Count Result 329 k/mm3 (150-375); Red Blood Count 2.85 M/mm3 (4.2-5.4); Red Cell Distribution Width 15.1 % (11.5-14.5); White Blood Count 7.4 K/mm3 (4.5-10.0)
[2023-04-03 08:30] VITALS: O2SAT 96
[2023-04-03 08:35] LABS: Alanine Aminotransferase 18 U/L (6-35); Albumin Level 2.3 g/dL (3.5-5.1); Alkaline Phosphatase 95 U/L (38-126); Anion Gap 3 mmol/L (8-16); Aspartate Amino Transferase 28 U/L (14-36); Bilirubin,Total 0.2 mg/dL (0.2-1.3); Blood Urea Nitrogen 23 mg/dL (7-17); Calcium 7.6 mg/dL (8.4-10.2); Carbon Dioxide 29 mmol/L (22-30); Chloride 98 mmol/L (98-107); Estimated CRCL calculation 54 ml/min; Estimated Glomerular Filt Rate > 60; Glucose 146 mg/dL (65-110); Potassium 3.8 mmol/L (3.4-5.0); Sodium 130 mmol/L (137-145)
[2023-04-03] MEDS: PANTOPRAZOLE SOD SESQUIHYDRATE 20 MG TAB PO (08:40)
[2023-04-03] MEDS: SODIUM CHLORIDE 5% OP SOLN 15 ML BTL 1 DROP EACH EYE (08:40)
[2023-04-03 09:03] VITALS: BP 127/64; PULSE 87; RESP 12; TEMP 36.6; O2SAT 96
--- NOTE | 2023-04-03 11:13 | PM.IMPN ---
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 Blood pressure is up to 115/60 after a bolus of saline yesterday Sodium up to 130 and creatinine 0.60 Patient willing for transfer the [facility] Continue oxycodone and gabapentin for pain control. Atrial fibrillation continue Eliquis, isosorbide dinitrate, lisinopril, Lasix Anemia of chronic disease and malnutrition. Iron supplements if needed. Spoke to patient's family at the moment encouraged oral intake. Prognosis is poor in general due to metastatic disease Hold BP meds. Patient is DNR. No anticoagulation due to possible GI bleed and low hemoglobin Will repeat CT head to rule out metastasis GI prophylaxis. SCDs All records reviewed [facility] Discussed plan of care patient's family and with with the nursing staff and with the patient in detail. Answered all questions and concerns from the patient. All labs have been reviewed. Code status updated dictation may have been done utilizing a voice recognition system. Attempts have been made to correct errors. However, there may be uncorrected grammatical, spelling, and recognition errors present. Time Spent With Patient Time: 35 minutes Subjective Date/time seen: 04/03/23 11:13 Interval history: Patient admitted with anemia pleural effusion history of metastatic lung disease, hypotension new onset atrial fibrillation on hypornatremia much more alert and awake stating she would just not feeling well still waiting for bed to go to [facility] spoke to patient's family at length patient appears a bit more confused today Review of Systems Review of Systems: All systems reviewed & are unremarkable except as noted in HPI and below Exam Narrative: GENERAL: non-toxic, in no acute distress. Conjunctiva is pale HEAD: Normocephalic, atraumatic. NECK: Supple. No adenopathy, no masses. RESPIRATORY: Airway patent, respirations nonlabored. CARDIOVASCULAR: Regular rate and rhythm without murmurs, ABDOMINAL: Soft, nontender, nondistended, no hepatosplenomegaly. Normoactive BS. SKIN: Warm, dry, normal color. No rashes. NEURO: A&O X3. Moves all extremities PSYCHIATRIC: Appropriate mood and affect. Normal interaction. Objective Data Vital Signs Vital Signs: Vital Signs - 24 hr 04/02/23 14:58 04/02/23 21:29 04/02/23 21:00 Temperature 36.8 C 36.6 C Pulse Rate 87 91 Respiratory Rate 12 16 Blood Pressure 113/35 L 120/41 L Pulse Oximetry 91 98 98 Oxygen Delivery Nasal Cannula Oxygen Flow Rate 3 04/03/23 06:51 04/03/23 09:03 04/03/23 08:30 Temperature 36.4 C 36.6 C Pulse Rate 84 87 Respiratory Rate 14 12 Blood Pressure 135/50 L 127/64 Pulse Oximetry 96 96 96 Oxygen Delivery Nasal Cannula Oxygen Flow Rate 3 Intake/Output Intake/Output: Intake & Output 03/31/23 04/01/23 04/02/23 04/03/23 23:59 23:59 23:59 23:59 Intake Total 661 939 4846 1250 Output Total 1000 425 Balance -618 72 6096 1250 Meds/Results Medications: Ac
[2023-04-03 15:53] VITALS: BP 150/59; PULSE 110; RESP 18; TEMP 36.5; O2SAT 96
[2023-04-03] MEDS: ATORVASTATIN 20 MG TABLET PO (19:59)
--- NOTE | 2023-04-08 11:31 | PM.TDS ---
Transfer Discharge Sum: Prov Provider Date of admission: 04/01/23 16:09 Primary care physician: crystal nuno Admitting clinician: Charlene Toussaint DO Consults: 03/30/23 21:17 Care Coordination Consult Routine Comment: Reason for Consult:: Hospice Referral Attending physician on discharge: Crystal Nuno DS: Admitting Diagnosis Discharge Date 04/03/23 Admitting Diagnosis HYPONATREMIA AND LUNG CANCER WITH METS DS: Discharge Diagnosis Discharge Diagnosis (1) Hypotension due to hypovolemia: Code(s): E86.1 - Hypovolemia Status: Acute (2) Anemia: Qualifiers: Iron deficiency anemia type: inadequate dietary iron intake Code(s): D64.9 - Anemia, unspecified Status: Acute (3) Hyponatremia: Code(s): E87.1 - Hypo-osmolality and hyponatremia Status: Acute (4) 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 Qualified Code(s): C34.91 - Malignant neoplasm of unspecified part of right bronchus or lung Code(s): C34.90 - Malignant neoplasm of unspecified part of unspecified bronchus or lung Status: Acute (5) Hypothyroidism: Qualifiers: Hypothyroidism type: acquired Qualified Code(s): E03.9 - Hypothyroidism, unspecified Code(s): E03.9 - Hypothyroidism, unspecified Status: Acute (6) Paroxysmal A-fib: Code(s): I48.0 - Paroxysmal atrial fibrillation Status: Acute (7) CAD (coronary artery disease): Code(s): I25.10 - Atherosclerotic heart disease of [place] coronary artery without angina pectoris Status: Acute Transfer Discharge Sum: Med Medications Active and Home Medications: Home Medications apixaban 2.5 mg tablet (Eliquis) 2.5 mg PO Q12HR 30 days #60 tabs 02/14/23 [Rx Confirmed 03/30/23] atorvastatin 20 mg tablet 20 mg PO HS 30 days #30 tabs 02/14/23 [Rx Confirmed 03/30/23] diltiazem HCl 120 mg capsule,24 hr,extended release 120 mg PO QAM 30 days #30 caps 02/14/23 [Rx Confirmed 03/30/23] furosemide 40 mg tablet 40 mg PO DAILY 5 days #5 tabs 02/14/23 [Rx Confirmed 03/30/23] gabapentin 400 mg capsule 400 mg PO Q8HR 30 days #90 caps 02/14/23 [Rx Confirmed 03/30/23] isosorbide mononitrate 30 mg tablet,extended release 24 hr 30 mg PO QAM 30 days #30 tabs 02/14/23 [Rx Confirmed 03/30/23] levothyroxine 100 mcg tablet (Synthroid) 100 mcg PO DAILY@0630 30 days #30 tabs 02/14/23 [Rx Confirmed 03/30/23] lisinopril 40 mg tablet 40 mg BYMOUTH DAILY 30 days #30 tabs 02/14/23 [Rx Confirmed 03/30/23] pantoprazole 20 mg tablet,delayed release (Protonix) 20 mg PO QAM 30 days #30 tabs 02/14/23 [Rx Confirmed 03/30/23] sodium chloride 5 % eye drops 1 drp EACH EYE BID 30 days #15 mL 02/14/23 [Rx Confirmed 03/30/23] oxycodone 5 mg tablet 5 mg PO DIRECTED 03/30/23 [History Confirmed 03/30/23] aspirin 81 mg chewable tablet 81 mg PO DAILY 03/31/23 [History Confirmed 03/31/23] Transfer Discharge Sum: Hosp Hospital Course Hospital course: Janet Benitez is a 78 year old female Patient is a 78 year old female with a past medical history of HTN, Metastatic cancer, Hypothyroidism who presented to the ED with complaints of increase shortness of breath, that started on Thursday night.? She stated that she was having increased wheezes, inability to lay flat, and just overall increased work of breathing.? She also stated that she has a cough, however, has not been productive.? She has been having no chest pain, nausea, vomiting, diarrhea, constipation, weakness or fatigue.? She did state that she has been having some light headedness and dizziness, however, seems to be chronic at this time.? Patient does have a wound on her left leg hip bone area.? She does need wound care 3 times a day.? She currently is feeling a lot better and she is transferring from the chair to the bed.? Currently she denies any current pain including chest pain, shortness a breath, nausea, vomiting, diarrhea constipation.? I did speak to her
== END 2023-04-03 20:05 | disposition short-term general hospital (02) | DRG 180 ==
LOC: ANHED 21:15 → ANH2MED 21:39
PROVIDERS: Nurse Practitioner; Admitting Provider Internal Medicine; Emergency Provider Emergency Medicine; Visit Provider Internal Medicine
DX: C78.01 Secondary malignant neoplasm of right lung (principal); E43 Unspecified severe protein-calorie malnutrition; J90 Pleural effusion, not elsewhere classified; C79.51 Secondary malignant neoplasm of bone; E87.1 Hypo-osmolality and hyponatremia; G89.3 Neoplasm related pain (acute) (chronic); D50.9 Iron deficiency anemia, unspecified; E78.5 Hyperlipidemia, unspecified; C80.1 Malignant (primary) neoplasm, unspecified; E03.9 Hypothyroidism, unspecified; E86.1 Hypovolemia; I48.0 Paroxysmal atrial fibrillation; Z20.822 Contact with and (suspected) exposure to COVID-19; Z68.24 Body mass index [BMI] 24.0-24.9, adult; Z95.1 Presence of aortocoronary bypass graft; Z79.01 Long term (current) use of anticoagulants; Z79.82 Long term (current) use of aspirin; Z85.3 Personal history of malignant neoplasm of breast
CPT/HCPCS: 32555; 36415; 70450; 71046; 71275; 80053; 81001; 83735; 83880; 84145; 84484; 85014; 85018; 85025; 85027; 85610; 85730; 87040; 87637; 93005; 96361; 96374; 96375; 96376; 99285; A9270; G0378; J2270; J2405; J7042; Q9967